=== PATIENT | female | born 1955 | race Caucasian/White ===

== ENCOUNTER → 2024-09-04 | Outpatient (CLI) | payer MEDICARE, OTHER ==
--- NOTE | 2024-09-04 14:23 | US ---
EXAMINATION TYPE: US arterial LE multi level DATE OF EXAM: 09/04/2024 2:04 PM COMPARISONS: None. CLINICAL INDICATION: Female, 69 years old with history of L97.522 NON-PRESSURE CHRONIC ULCER OF OTHER PART; Neuropathy TECHNIQUE: Systolic pressures were taken of the upper and lower extremity arteries with ankle-brachia l indices and toe brachial indices calculated bilaterally. History of: Smoker: Previous Hypertension: Takes medication Diabetic: Yes Hyperlipidemia: Yes TIA/CVA: No Previous Vascular Surgery: No CAD: No OK: No Vascular Ulcers: Left x 2 Claudication: No Gangrene: No FINDINGS: Doppler Waveforms: Right: Monophasic Left: Monophasic Brachial Artery systolic pressure: Right: 108 Left: 106 Posterior Tibial artery systolic pressure: Right: 100 Left: Unable to obtain. Dorsalis Pedis artery systolic pressure: Right: 104 Left: 41 Toe artery systolic pressure: Right: 53 Left: 18 Ankle-Brachial Indices: Right: 1.0 Left: 0.4 Toe Brachial Indices: Right: 0.5 Left: 0.2 (Normal > 0.6; Mild 0.35 - 0.59, Moderate 0.12 - 0.34, Severe <0.12) IMPRESSION: NIKHIL: Right: Normal 0.9 - 1.4, Recommendation: None Left: Severe Arterial Disease <0.5, Recommendation: Refer to vascular specialist [facility], , 09/04/2024 2:20 PM
== END | disposition home or self-care (01) ==
LOC: RADUSWWP 13:17
PROVIDERS: ATTEND Thoracic Surgery (Cardiothoracic Vascular Surgery)
DX: S82.832A Other fracture of upper and lower end of left fibula, initial encounter for closed fracture (principal); L97.522 Non-pressure chronic ulcer of other part of left foot with fat layer exposed; L89.522 Pressure ulcer of left ankle, stage 2; F17.210 Nicotine dependence, cigarettes, uncomplicated; T84.197A Other mechanical complication of internal fixation device of bone of left lower leg, initial encounter; I77.9 Disorder of arteries and arterioles, unspecified; I10 Essential (primary) hypertension; E78.5 Hyperlipidemia, unspecified; E11.40 Type 2 diabetes mellitus with diabetic neuropathy, unspecified; X58.XXXA Exposure to other specified factors, initial encounter
CPT/HCPCS: 93923